=== PATIENT | female | born 1995 ===

== ENCOUNTER 2018-12-02 09:44 | Emergency (ER) | payer OTHER ==
[~2018-12-02] VITALS: Ht 154.9 cm; Wt 70.3 kg
== END 2018-12-02 11:25 | disposition home or self-care (01) ==
LOC: ER 09:44
DX: R53.81 Other malaise (principal); R07.0 Pain in throat; T47.6X5A Adverse effect of antidiarrheal drugs, initial encounter; Y92.89 Other specified places as the place of occurrence of the external cause